=== PATIENT | male | born 1950 | race Hispanic/Latino ===

== ENCOUNTER 2024-12-19 09:25 | Day surgery (SDC) | payer BC ==
[2024-12-16 10:44] VITALS: BMI 28.7
[2024-12-19] MEDS ORDERED: Acetaminophen 325 MG TAB ONE (10:29)
[2024-12-19] MEDS ORDERED: Heparin 5,000 UNITS/ML VIAL ONE (10:30)
[2024-12-19 11:21] LABS: #Basophils Less than 0.03 10x3/uL (0.0-0.2); #Eosinophils 0.23 10x3/uL (0.0-0.7); #Monocytes 0.49 10x3/uL (0.11-0.59); #Neutrophils 2.53 10x3/uL (1.40-6.50); %Basophils 0.5 % (0.0-1.0); %Eosinophils 5.3 % (0.0-10.0); %Lymphocytes 24.6 % (21.0-51.0); %Monocytes 11.3 % (0.0-10.0); %Neutrophils 58.1 % (42.0-75.0); Hematocrit 38.9 % (42.0-52.0); Hemoglobin 13.2 g/dL (14.0-18.0); Mean Corpuscular Hemoglobin 32.6 pg (27.0-31.0); Mean Corpuscular Volume 96.0 fL (78.0-98.0); Platelet Count 147 10x3/uL (130-400); Red Blood Cell (RBC) Count 4.05 mill/uL (4.70-6.10); White Blood Cell (WBC) Count 4.35 10x3/uL (4.8-10.8)
[2024-12-19 11:45] LABS: ALT (SGPT) 24 U/L (Less than 45); AST (SGOT) 39 U/L (11-34); Albumin 3.9 g/dL (3.1-4.5); Alkaline Phosphatase 119 U/L (40-110); Anion Gap 12 mmol/L (10-20); BUN (Urea Nitrogen) 15 mg/dL (8.4-25.7); Bilirubin, Total 0.7 mg/dL (0.3-1.2); Calc. Creatinine Clearance 128 mL/min (70-130); Calcium 9.0 mg/dL (7.8-10.44); Carbon Dioxide 25 mmol/L (23-31); Chloride 108 mmol/L (98-107); Globulin 2.9 g/dL (2.4-3.5); Glucose 101 mg/dL (83-110); Potassium 4.0 mmol/L (3.5-5.1); Sodium 141 mmol/L (136-145)
[2024-12-19] MEDS ORDERED: PROPOFOL 20 ML ONE (12:52)
[2024-12-19] MEDS ORDERED: Rocuronium Bromide 10 MG/ML (10ML VIAL) ONE (12:52)
[2024-12-19] MEDS ORDERED: fentaNYL PF 100 MCG/2 ML SYRINGE ONE (12:52)
[2024-12-19] MEDS ORDERED: Lidocaine 1% PF 5 ML VIAL ONE ×2 (12:52→13:31)
[2024-12-19] MEDS ORDERED: Ondansetron PF 4 MG/2 ML Vial ONE (12:56)
[2024-12-19] MEDS ORDERED: Bupivacaine 0.25% HCL 30 ML VIAL ONE (12:58)
[2024-12-19] MEDS ORDERED: metroNIDAZOLE 500 MG (100 mL) BAG ONE (13:13)
[2024-12-19] MEDS ORDERED: CEFAZOLIN 1 GM VIAL ONE (13:31)
[2024-12-19] MEDS ORDERED: Lidocaine 1% (PF) 30 ML VIAL ONE (13:33)
[2024-12-19] MEDS ORDERED: HYDROmorphone 2 MG/ML VIAL ONE (13:39)
[2024-12-19] MEDS ORDERED: NEOSTIGMINE 3 MG/3 ML SYRINGE ONE (14:20)
[2024-12-19] MEDS ORDERED: Glycopyrrolate 0.2 MG/ML 5 ML SYRINGE ONE (14:20)
== END 2024-12-19 15:44 | disposition home or self-care (01) ==
LOC: SDC 09:25
PROVIDERS: ATTEND Surgery
PROC: 0DBP0ZZ Excision of Rectum, Open Approach (ICD-10-PCS; principal; 2024-12-19)
DX: C20 Malignant neoplasm of rectum (principal); F17.200 Nicotine dependence, unspecified, uncomplicated; Z98.49 Cataract extraction status, unspecified eye
CPT/HCPCS: 80053; 82378; 85025; 88309; 88341; 88342; J0169; J0665; J0690; J1100; J1171; J1644; J2250; J2405; J2704